=== PATIENT | female | born 1945 | race Caucasian/White ===

== ENCOUNTER 2025-02-10 05:27 | Observation (INO) ==
--- NOTE | 2025-01-01 09:44 | PAT Medication Instructions ---
Medication Instructions Date of Service January 01, 2025 Home Medications atorvastatin 10 mg tablet 10 mg PO HS calcium carbonate (Calcium 600) 600 mg PO QDL cholecalciferol (vitamin D3) 50 mcg (2,000 unit) tablet (Vitamin D3) 50 mcg PO QDL fluticasone propionate 50 mcg/actuation nasal spray,suspension 1 spray intranasal BID PRN sinus congestion DO NOT take the morning of surgery calcium carbonate (Calcium 600) 600 mg PO QDL cholecalciferol (vitamin D3) 50 mcg (2,000 unit) tablet (Vitamin D3) 50 mcg PO QDL Take morning of surgery fluticasone propionate 50 mcg/actuation nasal spray,suspension 1 spray intranasal BID PRN sinus congestion (if needed) Take evening before surgery atorvastatin 10 mg tablet 10 mg PO HS fluticasone propionate 50 mcg/actuation nasal spray,suspension 1 spray intranasal BID PRN sinus congestion (if needed) MORNING OF SURGERY: NOTHING TO EAT OR DRINK AFTER MIDNIGHT Other Notes If you have any questions please call us at [phone] or [phone] or [phone] or [phone]
--- NOTE | 2025-01-07 11:46 | Anesthesiology Consultation ---
Date of Service January 07, 2025 Assessment & Plan (1) Encounter for pre-operative examination: Chart Review Chart Review: Acceptable Risk for Surgery and Patient seen in Pre Admission Testing - Please send EKG for continuity of care - no response needed Pt currently scheduled as 23 hours observation. If surgeon decides to change patient to Same Day Joint, patient would be acceptable risk for OSMIN, pending patient is motivated, has good support and surgeon's office completes [facility] Day [facility] Program preop requirements. Per PAT appt on 01/07/25, no recent illness/disease exposures, illness related symptoms, or recent illness/disease positive tests. Will leave to surgeon's discretion if preop Covid testing needed PCP office visit 12/30/24= "follow up for chronic medical conditions... having left OSMIN in January... HLD- significant improvement with diet and exercise... Neutropenia- labs reviewed and showing stability... Vit D deficiency- continue supplement... Left hip pain- to have L OSMIN... Osteoporosis- Dexa to be updated..." Teaching & Discussion Pre-Anesthesia Teaching/Discussion Notes: Instructed NPO after midnight before surgery,except medications with 15 cc of water. Medication instructions provided according to the PAT guidelines. History Surgery Operation Date: 02/10/25 12:00 Proposed Procedures p Left Anterior Total Hip Arthroplasty - Bebeto Thomson DO Height/Weight Height: 5 ft Weight: 47.1 kg Allergies Allergy/AdvReac Type Severity Reaction Status Date / Time methylprednisolone AdvReac Intermediate facial Verified 12/27/24 08:08 swelling and redness, inflammation Medications Home Medications Medication Instructions Recorded Confirmed Last Taken atorvastatin 10 mg tablet 10 mg PO HS 11/22/24 12/27/24 Unknown calcium carbonate (Calcium 600) 600 mg PO QDL 12/27/24 12/27/24 Unknown cholecalciferol (vitamin D3) 50 50 mcg PO QDL 12/27/24 12/27/24 Unknown mcg (2,000 unit) tablet (Vitamin D3) fluticasone propionate 50 1 spray intranasal BID PRN sinus 12/27/24 12/27/24 Unknown mcg/actuation nasal congestion spray,suspension Past Medical History Medical History Chronic leukopenia followed with [facility], d/c ~2021 after a stem cell biopsy was done and found to be normal. instructed to f/u prn. History of uterine fibroid Hyperlipidemia Osteoarthritis Exercise / Class Metabolic Activity II 4-5 Yardwork/Stairs/Walk up hill (one flight of stairs -no chest pain or SOB ) Past Family History Family History Sister FHx: colon cancer Other No family history of adverse response to anesthesia Past Surgical History Surgical History History of breast biopsy (2023) needle biopsy (benign) History of colonoscopy History of dilatation and curettage Past Anesthesia History No Hx of Anesthesia Complications (with exception to spinal headache s/p childbirth (unsure if she had a spinal or epidural) ) and No Family Hx of Anesthesia Complications History of PONV No Hx of PONV and No Hx of Motion Sickness Social History Smoking Status: Never smoker Do You Dip or Chew Tobacco: No Hx Alcohol Use: No Hx Substance Use: No substance use type: does not use Review of Systems Patient denies chest pain, shortness of breath, dyspnea on exertion, reflux, cough, wheezing, palpitations. No hx of seizures, stroke, FL, apnea/snoring. No hx of blood clots or blood transfusions Physical Exam Vital Signs VITALS BP 157/79 P 57 TEMP 97.4 SP02 100% RESP 16 Constitutional no acute distress ENMT Mouth: no TMJ clicking Thyromental Distance: > or= 3.5 Finger Breadths (3.5) Mallampati Class: II Neck neck extension not limited Respiratory normal respiratory effort; no respiratory distress Auscultation: lungs clear to auscultation bilaterally; no wheezes Cardiovascular Rate/Rhythm: regular rate and regular rhythm Heart Sounds: no murmur Vessels: no carotid bruit Musculoskeletal Spine: no pain with cervical ROM Extremities: extremities normal to inspection Psychiatric Orientation: alert Lab Results Anesthesia Preop Results Results Anesthesia Widget: PT 10.4 Seconds (9.0-12.0) 01/07/25 PTT 28 Seconds (21-31) 01/07/25 INR 1.0 (0.9-1.1) 01/07/25 Blood Type A Positive 01/07/25 Antibody Screen NEGATIVE 01/07/25 Testing Laboratory Results 12/23/24= WBC: 2.79 (chronic and stable) H/H: 13.7/40.2 PLATELETS: 212 SODIUM: 138 POTASSIUM: 3.8 CHLORIDE: 107 CO2: 30.0 BUN: 18.0 CREATININE: 0.87 GLUCOSE: 84 Electrocardiogram Date: 01/07/25 Findings: + SB @ (54bpm) Incomplete left bundle block (Patient with good functional status- will send to PCP for continuity of care and to follow up at PCP discretion) Chest X-Ray Date: 01/07/25 Findings: + NAD
--- NOTE | 2025-02-06 11:26 | History & Physical Report ---
Date of Service February 06, 2025 Assessment & Plan (1) Osteoarthritis of left hip: We will proceed with a left anterior total of arthroplasty. Postoperatively, she will be started on aspirin for DVT prophylaxis and kept overnight in the hospital for postop medical management. She plans to have the hospital set up home health for discharge. History of Present Illness Chief Complaint: Osteoarthritis of the left hip. Primary Care Provider: NO PCP Mariel is a pleasant 79-year-old female who has been dealing with chronic increasing left hip and groin pain. All of her pain is located in the groin. She has noticed decreased range of motion. She is having trouble putting on her shoes. Her symptoms have been worsening. She saw another provider in our office. X-rays and clinical exam were diagnostic for advanced arthritis of the left hip. After failing conservative treatment, she has elected proceed with a left anterior total of arthroplasty. Allergies Allergy/AdvReac Type Severity Reaction Status Date / Time methylprednisolone AdvReac Intermediate facial Verified 12/27/24 08:08 swelling and redness, inflammation Home Medications Medication Instructions Recorded Confirmed Type atorvastatin 10 mg tablet 10 mg PO HS 11/22/24 12/27/24 History calcium carbonate (Calcium 600) 600 mg PO QDL 12/27/24 12/27/24 History cholecalciferol (vitamin D3) 50 50 mcg PO QDL 12/27/24 12/27/24 History mcg (2,000 unit) tablet (Vitamin D3) fluticasone propionate 50 1 spray intranasal BID PRN sinus 12/27/24 12/27/24 History mcg/actuation nasal congestion spray,suspension Past Med/Surg History Problem List Osteoarthritis of left hip Hx of colonic polyps Medical History Chronic leukopenia followed with [facility], d/c ~2021 after a stem cell biopsy was done and found to be normal. instructed to f/u prn. History of uterine fibroid Osteoarthritis Hyperlipidemia Surgical History History of breast biopsy (2023) needle biopsy (benign) History of dilatation and curettage History of colonoscopy Family History Sister FHx: colon cancer Other No family history of adverse response to anesthesia Social History Smoking Status: Never smoker Second Hand Exposure: No; Do You Dip or Chew Tobacco: No; Tobacco Cessation Education Requested by Patient: No Hx Alcohol Use: No Hx Substance Use: No Preferred Language: Omani Communication Ability: Effective Respiratory Medicine Physician Required: No Beliefs That Will Affect Care: None Current Living Situation: Spouse Other Information That Helps Us Care for You: No Feels Safe at Home: Yes Safety Concerns: Feels Safe At This Time Assistive Devices: Contacts, Glasses and Hearing Aid - Bilateral Review of Systems All systems reviewed & are unremarkable except as noted in HPI & below. Physical Exam On physical exam of the left hip, she has decreased range of motion. She has pain with internal and external rotation. All of her pain is located in the groin.. Constitutional WD/WN, vitals as above Eyes PERRL, conjunctivae normal, anicteric sclerae ENMT external ear and nose normal, oropharynx normal Neck trachea midline, no thyromegaly Respiratory normal respiratory effort Cardiovascular RRR, no murmur, no edema Gastrointestinal (Abdomen) normal bowel sounds, soft, nontender, no hepatosplenomegaly Psychiatric A+Ox3, euthymic affect Results & Data Results & Data Laboratory Results . Diagnostic Findings . PG Care Time/CCT Total # of Minutes Spent Total Time Spent with Patient: Total time spent is greater than 50% in coordination of care (as documented) at patient's floor/unit and/or counseling patient: Coding Level of Care Code None Diagnoses Osteoarthritis of left hip M16.12
[2025-02-10] MEDS: LR 500ML BOLUS, THEN 15ML/HR IV SCH (06:06)
[2025-02-10] MEDS: ACETAMINOPHEN 500 MG TAB PO SCH ×2 (06:06→14:59)
[2025-02-10] MEDS: LR 60ML/HR IV SCH (06:06)
[2025-02-10] MEDS: FAMOTIDINE 20 MG TAB PO SCH (06:07)
[2025-02-10] MEDS: dexAMETHasone**PF** 10 MG/ML VIAL IV SCH (06:07)
[2025-02-10] MEDS: GABAPENTIN 300 MG CAP PO SCH (06:07)
[2025-02-10] MEDS ORDERED: BUPIVACAINE 0.5 % 5 MG/1 ML PF 10ML VIAL ONE (06:17)
[2025-02-10] MEDS ORDERED: ATROPINE SULFATE 0.1 MG/ML 10ML SYR IV PRN (06:26)
[2025-02-10] MEDS ORDERED: ONDANSETRON INJ 2 MG/ML 2 ML VIAL IV PRN (06:26)
--- NOTE | 2025-02-10 06:33 | History & Physical Bridge Note ---
Date of Service February 10, 2025 History & Physical Bridge Note I have examined the patient, reviewed the History & Physical and in the interval since the performance of the History & Physical I have noted the following changes of clinical significance: no changes noted
[2025-02-10] MEDS: TRANEXAMIC ACID 1,000 MG **IV Pre-op IV SCH (06:41)
[2025-02-10] MEDS ORDERED: MIDAZOLAM HCL 1 MG/ML 2ML VIAL ONE (06:41)
[2025-02-10] MEDS ORDERED: ePHEDrine sulfate 50 MG/5 ML SYR ONE (07:38)
[2025-02-10] MEDS ORDERED: PROPOFOL IV EMULSION 10 MG/ML 100 ML VIAL IV ONE (07:38)
[2025-02-10] MEDS: ROPIV 0.5% 246mg, Ketorolac 30mg, EPINEPHrine 0.5mg in NSS INFIL SCH (07:47)
[2025-02-10] MEDS: ORTHO JOINT ANESTHETIC ONE (07:48)
--- NOTE | 2025-02-10 08:09 | Operative Report ---
PG Post Operative Report Pre & Post Diagnosis Operation Date: 02/10/25 07:00 Pre-Op Diagnosis: Left Hip Osteoarthritis Post-Op Diagnosis: Left Hip Osteoarthritis I identified the patient and participated in the time-out.: Yes Procedure Operation Date: 02/10/25 07:00 Actual Procedures p Left Anterior Total Hip Arthroplasty, Uncemented(Left) - Bebeto Thomson DO Surgeon Bebeto Thomson DO Yard Worker Juna Daniel Lemos PA-C Estimated Blood Loss 250 Findings Consistent with Post-Op Diagnosis Specimens Left femoral head Description of Procedure Implants used I used a ZimmerBiomet total hip arthroplasty system with a size 2 high offset Z1 stem, a 50 mm G7 cup, an E1 polyethylene liner, a 36 mm ceramic head with a 0 neck. Mariel arrived at the hospital for the above procedure. She was seen in the preoperative holding area and the operative extremity was identified and signed. She was given a spinal anesthetic, a preoperative antibiotic, and TXA. She was then taken back to the operating room and laid on the table in the supine position. She was given basic sedation. The operative leg was secured to a Puristst leg positioner. The hip was then prepped and draped in sterile fashion. A timeout was done and the patient and the operative extremity was properly identified. An anterior approach was used. Dissection was taken down through the fascia and the tensor muscle belly was retracted laterally and the rectus was retracted medially. The circumflex vessels were identified and ligated. The capsule was then incised and tagged for later repair. The femoral neck was then cut and the femoral head was removed. The acetabulum was exposed. Time was spent doing a complete circumferential labral release. Sequential reaming of the acetabulum up to a size 49 reamer was done. Final reamings were done under fluoroscopy to ensure appropriate version. A Biomet 50 mm G7 cup was then impacted into place. The E1 polyethylene liner was then snapped into place. Surrounding soft tissues were then injected with 100 cc of an orthopedic pain control cocktail. The proximal femur was then exposed. Sequential broaching up to a size 2 broach was done. Off that broach a size 36 head with a 0 neck was trialed. The hip was reduced and fluoroscopic images showed anatomic alignment of the implants in acceptable length. The broach was removed. The final size 2 high offset Z1 stem was then impacted into place. A ceramic 36 mm head with a 0 neck was then impacted onto the stem and the hip was reduced. Final fluoroscopic images showed anatomic alignment of the hip. The capsule was then closed with #1 Vicryl suture. A dilute betadyne lavage was then done for 3 minutes. The joint was then irrigated with normal saline solution. The fascia was closed with #1 PDS suture. Skin was closed with 2-0 Vicryl, [place] Z[place], and a Silverlon dressing. She was then transferred to a hospital bed and taken to the post anesthesia care unit in stable condition. She tolerated the procedure well. Juan Daniel Lemos PA-C, was present for the entire procedure. He was critical for patient positioning, prepping, draping, retraction exposure, wound closure and application of sterile dressing. I attest to the content of the Intraoperative Record and any orders documented therein. Any exceptions are noted below.
--- NOTE | 2025-02-10 08:48 | XRay Report ---
XR hip 1V LT w pelvis CLINICAL HISTORY: IN PACU - Post Surgical COMPARISON: None FINDINGS: Left hip prosthesis shows no hardware complication. There is expected soft tissue gas. The re are mild degenerative changes at the right hip. IMPRESSION: Unremarkable postoperative exam. ACT 112: Negative or not required by law. Electronically signed by: Yonas So M.D. 02/10/2025 8:47 AM
--- NOTE | 2025-02-10 08:49 | Fluoroscopy Report ---
FL hip LT 1V CLINICAL HISTORY: LT ANTERIOR HIP COMPARISON STUDY: None FLUOROSCOPY TIME: 15 seconds FLUOROSCOPY IMAGES: 1 EXPOSURE DOSE: 1.4 mGy FINDINGS: Fluoroscopy was provided for left hip prosthesis. IMPRESSION: Intraoperative fluoroscopy. ACT 112: Negative or not required by law. Electronically signed by: Yonas So M.D. 02/10/2025 8:47 AM
[2025-02-10] MEDS ORDERED: NALOXONE HCL 0.4 MG/1 ML VIAL/CARP IV PRN (10:25)
[2025-02-10] MEDS ORDERED: MAGNESIUM HYDROXIDE SUSP 30 ML UDC PO PRN (10:25)
[2025-02-10] MEDS ORDERED: HYDROmorphone INJ 0.5 MG/0.5 ML SYR IV PRN (10:25)
[2025-02-10] MEDS ORDERED: METOCLOPRAMIDE HCL INJ 5 MG/ML 2 ML VIAL IV PRN (10:25)
[2025-02-10] MEDS: SODIUM CHLORIDE 0.9% 1,000 ML IV SCH (10:39)
[2025-02-10] MEDS: KETOROLAC TROMETHAMINE 15 MG/ML VIAL IV SCH (12:00)
[2025-02-10] MEDS: MULTIVITAMIN TAB PO SCH (12:00)
[2025-02-10] MEDS: DOCUSATE SODIUM 100 MG CAP PO SCH (12:00)
--- NOTE | 2025-02-10 13:45 | Anesthesiology Progress Note ---
Date of Service February 10, 2025 Anesthesia Post Procedure Vital Signs Vital Signs: Temp Pulse Pulse Resp BP Pulse Ox O2 Del Method 02/10/25 13:09 36.4 C L 58 L 18 121/72 100 Room Air 02/10/25 12:20 34.8 C L 54 L 16 114/71 100 Room Air 02/10/25 11:11 34.7 C L 49 L 16 113/62 100 Room Air 02/10/25 10:43 34.6 C L 48 L 16 125/71 100 Room Air 02/10/25 10:15 34.8 C L 57 L 14 128/62 100 Room Air 02/10/25 10:00 36.4 C L 58 L 18 123/76 99 Room Air 02/10/25 09:45 58 L 14 118/68 100 Room Air 02/10/25 09:35 36 C L 55 L 14 123/57 L 100 Room Air 02/10/25 09:25 57 L 16 116/58 L 100 Room Air 02/10/25 09:15 52 L 14 121/57 L 100 Room Air 02/10/25 09:05 55 L 16 110/60 100 Room Air 02/10/25 08:55 60 16 105/55 L 100 Room Air 02/10/25 08:45 60 16 108/56 L 99 Room Air 02/10/25 08:35 70 16 106/58 L 100 Oxymask 02/10/25 08:28 36 C L 77 14 117/58 L 100 Oxymask 02/10/25 05:53 36.8 C 58 L 20 142/86 H 99 Room Air O2 Flow Rate 02/10/25 13:09 02/10/25 12:20 02/10/25 11:11 02/10/25 10:43 02/10/25 10:15 02/10/25 10:00 02/10/25 09:45 02/10/25 09:35 02/10/25 09:25 02/10/25 09:15 02/10/25 09:05 02/10/25 08:55 02/10/25 08:45 02/10/25 08:35 3 02/10/25 08:28 6 02/10/25 05:53 Pain Intensity Left Hip: Pain Intensity: 2 Transfer of Care Handoff Completed per policy Notes Mental Status: alert / awake / arousable and participated in evaluation Patient Amnestic to Procedure: Yes Nausea / Vomiting: adequately controlled Pain: adequately controlled Airway Patency, RR, SpO2: stable & adequate BP & HR: stable & adequate Hydration State: stable & adequate Neuraxial Anesthesia: was administered and sensory block is resolving Anesthetic Complications: no major complications apparent and Pt Satisfied with anesthetic care
[2025-02-10] MEDS: ASPIRIN 81 MG ECTAB PO SCH (21:11)
[2025-02-10] MEDS: SENNA 8.6 MG TAB PO SCH (21:11)
[2025-02-10] MEDS: ATORVASTATIN 10 MG TAB PO SCH (21:11)
--- NOTE | 2025-02-11 05:53 | Communication Note ---
Date of Service: February 11, 2025 Code Crystal was called after patient had an episode of full syncope in the bathroom after having a bm. VS at the time showed hypotension with BP of 60s systolic and 30s diastolic, and HR of 55 at the time. Recheck of VS after patient was moved to the bed showed improved BP to 130s systolic and 60s diastolic. Bsg at the time also wnl. Patient states that, prior to fainting, she felt flushed and sweaty. On exam, patient found to be awake, alert, and oriented, conversive, and in NAD. Rest of exam overall unremarkable. EKG done at bedside and showing sinus bradycardia. BMP, Magnesium, Lactate, and troponins x1 all within normal limits. CBC only remarkable for anemia of ~10, which could be related to recent orthopedic procedure. Patient feeling tired but overall okay. Believe the patient experienced a vagal event. Will order 1 L of LR at maintenance rate. Continue to monitor. Resident Activity Tracking Resident Involvement: Resident Care Provided Care Provided: Adult Hospital Medicine
[2025-02-11 06:04] LABS: Hematocrit (blood only) 31.4 % (37.0-47.0); Hemoglobin 10.7 g/dl (12.0-16.0); Immature Granulocytes # (auto) 0.05 K/uL (0.01-0.20); Immature Granulocytes % (auto) 0.8 %; Mean Corpuscular Hemoglobin 30.7 pg (25.0-34.0); Mean Corpuscular Volume 90.2 fL (80.0-100.0); Platelet Count 182 K/uL (130-400); RDW Standard Deviation 42.6 fL (36.4-46.3); Red Blood Count 3.48 M/uL (4.20-5.40); White Blood Count 6.00 K/ul (4.8-10.8)
[2025-02-11 06:24] LABS: Alanine Aminotransferase 13.0 U/L (7-52); Albumin Globulin Ratio 1.5 (0.9-2); Alkaline Phosphatase 61.0 U/L (34-104); Anion Gap 9.0 (3-11); Bilirubin,Total 0.7 mg/dl (0.2-1.0); Blood Urea Nitrogen 21.0 mg/dl (6-23); Calcium 8.5 mg/dl (8.6-10.3); Carbon Dioxide 22.0 mmol/L (21-32); Chloride 106.0 mmol/L (98-107); Creatinine Clr Calc Pharmacy 42.8 ml/min; Globulin 2.2 gm/dl (2.5-4.0); Glucose 166.0 mg/dl (70-99(Fasting)); Magnesium 1.8 mg/dl (1.7-2.4); Potassium 3.8 mmol/L (3.5-5.1); Sodium 137.0 mmol/L (136-145); Total Protein 5.5 gm/dl (6.0-8.3)
[2025-02-11] MEDS: ONDANSETRON INJ 2 MG/ML 2 ML VIAL IV PRN (06:35)
[2025-02-11] MEDS: LACTATED RINGER'S 1,000 ML IV SCH (06:39)
[2025-02-11 07:08] VITALS: RESP 16
--- NOTE | 2025-02-11 11:01 | Orthopedic Progress Note ---
Date of Service February 11, 2025 Assessment & Plan (1) S/P total left hip arthroplasty: * Continue Current Treatment * Disposition: Home with home PT, patient lives in ranch style home with a few steps to get inside * Daily treatment: Physical Therapy/ Occupational Therapy per protocol * Weight bearing status: as tolerated * Continue to monitor for ABLA, Hbg 10.7 02/11 * Pain control * DVT prophylaxis, ASA/Eliquis * Office/hospital f/u 2 weeks for progress check and staple/suture removal * Stable for discharge from ortho standpoint if cleared by PT (2) Syncopal episodes: Subjective Active Problems: S/p Left total hip arthroplasty with Dr. Thomson POD 1 79 y/o female s/p left total hip arthroplasty. Patient states overall she was doing well overall, pain managed and was able to ambulate yesterday afternoon. Pt states however this morning she had a syncopal episode in the bathroom after a bowel movement. Denies fever/chills, chest pain/SOB, nausea/vomiting. Otherwise no complaints. . Review of Systems All systems reviewed & are unremarkable except as noted in HPI & below. Physical Exam * General: Alert and oriented, no acute distress * Constitutional: well-developed, well-nourished. * Respiratory: Normal respiratory effort, no distress * Gastrointestinal: No tenderness to palpation, no rigidity or guarding. * Skin: No rash or lesion. * Neurologic: Grossly normal * Musculoskeletal: Left hip surgical dressing clean, dry and in place, some slight shadowing on dressing but not removed for exam. Otherwise no obvious deformity or overlying skin changes. Diffuse TTP proximal thigh and hip region. Otherwise no specific tenderness of distal thigh, lower leg, foot/ankle. AROM hip flexion intact. AROM foot/ankle intact. Sensation intact plantar/dorsal foot. Brisk capillary refill. . Results & Data Results & Data Laboratory Results . Laboratory Results - last 24 hr 02/11/25 02/11/25 02/11/25 05:31 05:47 05:49 WBC 6.00 RBC 3.48 L Hgb 10.7 L Hct 31.4 L MCV 90.2 MCH 30.7 MCHC 34.1 RDW Std Deviation 42.6 RDW Coeff of Ranjit 12.9 Plt Count 182 MPV 10.0 Immature Gran % (Auto) 0.8 Neut % (Auto) 53.2 Lymph % (Auto) 35.2 Gooding % (Auto) 9.2 Eos % (Auto) 0.8 Baso % (Auto) 0.8 Neut # (Auto) 3.19 Lymph # (Auto) 2.11 Gooding # (Auto) 0.55 Eos # (Auto) 0.05 Baso # (Auto) 0.05 Immature Gran # (Auto) 0.05 Sodium 137 Potassium 3.8 Chloride 106 Carbon Dioxide 22 Anion Gap 9 BUN 21 Creatinine 0.79 Est Cr Clr Drug Dosing 42.8 eGFR 76.99 BUN/Creatinine Ratio 26.6 H Glucose 166 H POC Glucose 150 H Lactate 1.6 Calcium 8.5 L Magnesium 1.8 Total Bilirubin 0.7 AST 30 ALT 13 Alkaline Phosphatase 61 Troponin I High Sens 3.9 Total Protein 5.5 L Albumin 3.3 L Globulin 2.2 L Albumin/Globulin Ratio 1.5 Diagnostic Findings . Hip X-Ray 02/10/25 00:00 FL hip LT 1V CLINICAL HISTORY: LT ANTERIOR HIP COMPARISON STUDY: None FLUOROSCOPY TIME: 15 seconds FLUOROSCOPY IMAGES: 1 EXPOSURE DOSE: 1.4 mGy FINDINGS: Fluoroscopy was provided for left hip prosthesis. IMPRESSION: Intraoperative fluoroscopy. ACT 112: Negative or not required by law. Electronically signed by: Yonas So M.D. 02/10/2025 8:47 AM Hip/Pelvis X-Ray 02/10/25 08:33 XR hip 1V LT w pelvis CLINICAL HISTORY: IN PACU - Post Surgical COMPARISON: None FINDINGS: Left hip prosthesis shows no hardware complication. There is expected soft tissue gas. There are mild degenerative changes at the right hip. IMPRESSION: Unremarkable postoperative exam. ACT 112: Negative or not required by law. Electronically signed by: Yonas So M.D. 02/10/2025 8:47 AM PG Care Time/CCT Total # of Minutes Spent Total Time Spent with Patient: Total time spent is greater than 50% in coordination of care (as documented) at patient's floor/unit and/or counseling patient: Coding Level of Care Code 57080 Post Operative Follow-Up Diagnoses S/P total left hip arthroplasty Z96.642 Syncopal episodes R55
[2025-02-11 16:44] VITALS: BP 138/71; PULSE 71; TEMP 98.1; O2SAT 99
--- NOTE | 2025-02-13 15:56 | Electrocardiogram Report ---
Test Reason : Blood Pressure : */* mmHG Vent. Rate : 59 BPM Atrial Rate : 59 BPM P-R Int : 150 ms QRS Dur : 122 ms QT Int : 484 ms P-R-T Axes : 71 -25 90 degrees QTcB Int : 479 ms Sinus bradycardia Left bundle branch block Abnormal ECG When compared with ECG of 07-Jan-2025 12:05, No significant change Confirmed by Deepak Valles ([id number]) on 02/13/2025 3:56:15 PM Referred By: Bebeto Thomson Confirmed By: Deepak Valles
== END 2025-02-11 17:00 | disposition home health service (06) | DRG 470 ==
LOC: ASU 05:27 → INTOOBSV 08:33 → 3E 08:33